=== PATIENT | male | born 1985 | race Caucasian/White ===

== ENCOUNTER 2020-01-11 12:39 | Emergency (ER) | payer OTHER, SELFPAY ==
--- NOTE | ~2020-01-11 | XR_ITS ---
EXAMINATION: XR chest 1V portable EXAM DATE: 01/11/2020 13:36 INDICATION: Cough/SOA TECHNIQUE: Portable AP frontal chest x-ray was obtained. Comparison is made to prior examination from 10/11/2011. FINDINGS: Relatively low lung volume. No confluent consolidation, pneumothorax or pleural effusion lisa spected. Cardiomediastinal silhouette is normal. There are no osseous abnormalities identified. IMPRESSION: Unremarkable XR chest 1V portable exam. Reviewed, dictated and finalized at location [facility]
[2020-01-11 12:57] VITALS: BP 132/100; PULSE 121; RESP 29; TEMP 36.8; O2SAT 97
[2020-01-11 13:22] LABS: Basophils Percent Auto 0.3 % (0.2-1.2); Eosinophils Percent Auto 0.3 % (0-4.4); Hematocrit 43.9 % (42.0-52.0); Immature Granulocyte Absolute 0.01 K/mm3 (0.00-0.031); Immature Granulocyte Percent A 0.3 % (0-0.5); Mean Corpuscular HGB Conc 34.2 g/dl (32-36); Mean Corpuscular Hemoglobin 30.9 pg (26-34); Mean Corpuscular Volume 90.5 fl (80-100); Mean Platelet Volume 8.7 fl (7.4-10.4); Monocytes Absolute Auto 0.2 K/mm3 (0.1-0.6); Monocytes Percent Auto 6.4 % (2.6-8.5); Neutrophils Absolute Auto 1.8 K/mm3 (1.3-6.7); Neutrophils Percent Auto 57.7 % (45.5-73.1); Platelet Count Result 195 k/mm3 (150-375); Red Blood Count 4.85 M/mm3 (4.6-6.20); Red Cell Distribution Width 12.6 % (11.5-14.5); White Blood Count 3.1 K/mm3 (4.5-10.0)
[2020-01-11] MEDS: BENZONATATE 100 MG CAPSULE 200 MG PO (13:25)
[2020-01-11] MEDS: SODIUM CHLORIDE 0.9% IV 1,000 ML 999 ML IV CONT (13:25)
[2020-01-11 13:33] LABS: Alanine Aminotransferase 55 U/L (4-50); Albumin Level 4.6 g/dL (3.5-5.1); Alkaline Phosphatase 49 U/L (38-126); Anion Gap 13 mmol/L (8-16); Aspartate Amino Transferase 54 U/L (17-59); Bilirubin,Total 0.5 mg/dL (0.2-1.3); Blood Urea Nitrogen 13 mg/dL (9-20); Calcium 8.8 mg/dL (8.4-10.2); Carbon Dioxide 25 mmol/L (22-30); Chloride 103 mmol/L (98-107); D Dimer 0.34 ug/mL (<0.48); Estimated CRCL calculation 121 ml/min; Estimated Glomerular Filt Rate > 60; Glucose 130 mg/dL (75-110); Potassium 3.7 mmol/L (3.4-5.0); Sodium 141 mmol/L (137-145)
--- NOTE | 2020-01-11 13:37 | ED.GENADULT ---
HPI - General Adult General Chief complaint: Shortness of Breath/Dyspnea Stated complaint: short of breath Time Seen by Provider: 01/11/20 12:46 History of Present Illness HPI narrative: Patient is a 34-year-old male who presents ER with cough and shortness of breath. Reports 5 days ago he started developing sinus congestion with postnasal drip with productive cough. This is typical for this time of year. 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 Unsure if he could have been exposed to Covid. Reports he has been taking his Mucinex D as well as 24-hour Claritin to help with his symptoms. 3 hours prior to arrival patient started develop shortness of breath where he feels like there is water in his lungs and he cannot get a deep breath. He feels slightly anxious about the symptoms but was not having anxiety prior to his development of shortness of breath. No chest pain or chest pressure. No lower extremity swelling. No history of blood clots. He has been afebrile. Reports he has not been eating well over the last couple days. Related Data Allergies Allergy/AdvReac Type Severity Reaction Status Date / Time No Known Allergies Allergy Verified 01/11/20 13:04 Review of Systems Review of Systems: All systems reviewed & are unremarkable except as noted in HPI and below Constitutional: Constitutional: Denies chills, Denies fever(s) and Denies weakness ENT: Reports nasal congestion and Reports sore throat Cardiovascular: Cardiovascular: Denies chest pain and Denies radiating jaw, neck or arm pain Respiratory: Respiratory: Reports chest congestion, Reports cough, Reports dyspnea and Denies wheezing Gastrointestinal: Gastrointestinal: Denies abdominal pain, Denies nausea and Denies vomiting PMFSH Past Medical History Medical History (Updated 01/11/20 @ 15:05 by Joe Horne MD) Healthy adult male Surgical History Surgical History (Updated 01/11/20 @ 13:40 by Joe Horne MD) No history of previous surgery Social History Social History (Updated 01/11/20 @ 13:40 by Joe Horne MD) Smoking status: Never smoker Additional occupation/education comments: Works as a 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 Exam Narrative: Exam Narrative: GENERAL: Well-appearing, well-nourished, and in no acute distress. HEAD: Normocephalic, atraumatic. ENT: Mucous membranes moist. No pharyngeal erythema or tonsillar exam. CHEST: Very faint crackles at the base with increased respiratory rate. Frequent coughing. HEART: Tachycardic regular. Normal peripheral pulses. ABDOMEN: Soft, nontender, nondistended. EXTREMITIES: Normal range of motion. No edema. NEURO: Alert and oriented x3. PSYCH: Normal mood and affect. Course Course Emergency Course: Respiratory rate normalized, heart rate improving with IV fluid. Occasionally coughing up phlegm. Discharge home with albuterol. Covid swab pending. Vital Signs Vital signs: Vital Signs Temperature 98.2 F 01/11/20 12:57 Pulse Rate 121 H 01/11/20 12:57 Respiratory Rate 29 H 01/11/20 12:57 Blood Pressure 132/100 H 01/11/20 12:57 Pulse Oximetry 97 01/11/20 12:57 Temperature 98.2 F 01/11/20 12:57 Pulse Rate 121 H 01/11/20 12:57 Respiratory Rate 29 H 01/11/20 12:57 Blood Pressure 132/100 H 01/11/20 12:57 Pulse Oximetry 97 01/11/20 12:57 Medical Decision Making Vital Signs Vital Signs: Vital Signs Temperature 98.2 F 01/11/20 12:57 Pulse Rate 121 H 01/11/20 12:57 Respiratory Rate 29 H 01/11/20 12:57 Blood Pressure 132/100 H 01/11/20 12:57 Pulse Oximetry 97 01/11/20 12:57 Temperature 98.2 F 01/11/20 12:57 Pulse Rate 121 H 01/11/20 12:57 Respiratory Rate 29 H 01/11/20 12:57 Blood Pressure 132/100 H 01/11/20 12:57 Pulse Oximetry 97 01/11/20 12:57 Lab Data Result diagrams: 01/11/20 13:16 01/11/20 13:16 Labs: Lab Results 01/11/20 01/11/20 01/11/20 Range/Units
[2020-01-11 13:42] LABS: NT Pro B Type Natriuretic Pept < 11 PG/ML (5-100)
[2020-01-13 22:23] LABS: SARS-CoV-2 RNA PCR Positive
== END 2020-01-11 15:20 | disposition home or self-care (01) ==
PROVIDERS: Emergency Provider Emergency Medicine
DX: U07.1 COVID-19 (principal); J06.9 Acute upper respiratory infection, unspecified; R05 Cough
CPT/HCPCS: 36415; 71045; 80053; 83880; 85025; 85380; 87635; 96360; 99283; A9270; C9803; J7030; U0003

== ENCOUNTER 2020-11-15 08:27 | Emergency (ER) | payer OTHER, SELFPAY ==
--- NOTE | 2020-11-15 08:34 | ED.GENADULT ---
HPI - General Adult General Chief complaint: Upper Respiratory Infection Stated complaint: sore throat Time Seen by Provider: 11/15/20 08:35 Source: patient Mode of arrival: ambulatory Limitations: no limitations History of Present Illness HPI narrative: 35-year-old male patient presents to the [facility] with complaints of sore throat that started today. Patient states he has had Covid back in December 2019 and has been fully vaccinated. Denies being any contact with people that have been positive with Covid that he is aware of. Patient states that he has was having some pain with swallowing today when to come get checked out. Denies any history of strep throat in the past. Related Data Home Medications Medication Instructions Recorded Confirmed No Home Medications 11/15/20 11/15/20 Allergies Allergy/AdvReac Type Severity Reaction Status Date / Time No Known Allergies Allergy Verified 11/15/20 08:30 Review of Systems Review of Systems: CONSTITUTIONAL: Denies fever, chills, or sweats. EYES: Denies visual changes, redness, or discharge. ENT: Denies rhinorrhea, congestion, positive sore throat, otalgia. CARDIOVASCULAR: Denies chest pain, palpitations, or edema. RESPIRATORY: Denies cough or dyspnea. GASTROINTESTINAL: Denies abdominal pain, nausea, vomiting, or diarrhea. GENITOURINARY: Denies dysuria or hematuria. SKIN: Denies rash or itching. MUSCULOSKELETAL: Denies back pain, joint pain, or myalgia. NEUROLOGIC: Denies headache, numbness, or weakness. PSYCHIATRIC: Denies anxiety or depression. 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 Comments At the time of my signature I agree with nursing past medical history, surgical, social, and family history. There is no relevant family history pertinent to the presenting complaint. Exam Narrative: GENERAL: Well-appearing, well-nourished, and in no acute distress. HEAD: Normocephalic, atraumatic. EYES: PERRLA and EOMI. ENT: Nares with erythema and edema noted bilaterally, no rhinorrhea or epistaxis. Mucous membranes moist. Patient has swollen uvula noted to the back of the throat. Bilateral TMs do have a little bit of fluid behind NECK: Supple. No lymphadenopathy CHEST: Clear to auscultation. No respiratory distress. HEART: Regular rate and rhythm. No murmur heard. Normal peripheral pulses. ABDOMEN: Soft, nontender, nondistended, normal active bowel sounds. EXTREMITIES: Normal range of motion. No edema. SKIN: Warm, dry, no rash. NEURO: No focal deficits. Alert and oriented x3. Course Vital Signs Vital signs: Vital Signs Temperature 36.4 C L 11/15/20 08:48 Pulse Rate 88 11/15/20 08:48 Respiratory Rate 18 11/15/20 08:48 Blood Pressure 134/90 11/15/20 08:48 Pulse Oximetry 99 11/15/20 08:48 Temperature 36.4 C L 11/15/20 08:48 Pulse Rate 88 11/15/20 08:48 Respiratory Rate 18 11/15/20 08:48 Blood Pressure 134/90 11/15/20 08:48 Pulse Oximetry 99 11/15/20 08:48 Vital signs reviewed The patient has been informed that they may have pre-hypertension or Hypertension based on a BP reading in the department. I recommend that the patient call the primary care provider listed on their discharge instructions or a physician of their choice this week to arrange follow up for further evaluation of possible pre-hypertension or Hypertension Medical Decision Making Differential Diagnosis Differential Diagnosis: Differential diagnosis: Allergic rhinitis, chronic sinusitis, tonsillitis, acute sinusitis, infectious mononucleosis, seasonal infl
[2020-11-15 08:48] VITALS: BP 134/90; PULSE 88; RESP 18; TEMP 36.4; O2SAT 99
== END 2020-11-15 09:23 | disposition home or self-care (01) ==
PROVIDERS: Emergency Provider Nurse Practitioner Family
DX: R22.0 Localized swelling, mass and lump, head (principal); J02.9 Acute pharyngitis, unspecified
CPT/HCPCS: 87081; 87880; 96372; 99213; G0463; J1100

== ENCOUNTER 2022-10-06 08:15 | Emergency (ER) | payer OTHER, SELFPAY ==
[2022-10-06 08:22] VITALS: BP 125/82; PULSE 85; RESP 16; TEMP 36.3; O2SAT 100
--- NOTE | 2022-10-06 08:25 | ED.ABDPAIN ---
HPI - Abdominal Pain General Chief Complaint: Abdominal Pain Stated Complaint: Left Side Abdominal Pain Time Seen by Provider: 10/06/22 08:36 Source: patient and RN notes reviewed Mode of arrival: ambulatory Limitations: no limitations History of Present Illness HPI narrative: 36 y/o male presented for c/o left lower abdominal pain worsening over the past 3 days. States pain started as mild discomfort Tuesday morning, was not relieved after large BM that day. Pain is constant and sharp, worse with certain movements like bending or lifting the left leg. LBM last night, normal. Last meal yesterday, reports normal appetite. Denies change in diet or increase in seeds nuts etc. Denies associated n/v/d/f/c, hematochezia or melena. Denies testicular pain/swelling or urinary complaints. Took pepto yesterday without relief. Related Data Home Medications Medication Instructions Recorded Confirmed No Home Medications 11/15/20 10/06/22 Allergies Allergy/AdvReac Type Severity Reaction Status Date / Time No Known Allergies Allergy Verified 10/06/22 08:25 Review of Systems Review of Systems: CONSTITUTIONAL: Denies body aches, fever, chills ENT: Denies rhinorrhea, congestion CARDIOVASCULAR: Denies chest pain, palpitations, or edema. RESPIRATORY: Denies cough or dyspnea. GASTROINTESTINAL: Endorses LLQ abdominal pain, . Denies nausea, vomiting, diarrhea, hematochezia, melena GENITOURINARY: Denies dysuria, hematuria, or CVA tenderness. SKIN: Denies rash, itching, or wounds. MUSCULOSKELETAL: Denies back pain, joint pain, or myalgia. NEUROLOGIC: Denies headache, numbness, tingling, or weakness. 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 Comments At time of signature, I have reviewed and agree with nursing past medical, surgical, social and family history unless otherwise noted. Please see nursing chart for further information. There is no relevant family history pertinent to the presenting complaint Exam Narrative: GENERAL: Well-appearing, in no acute distress. EYES: EOMI. Conjunctivae normal. ENT: Mucous membranes pink and moist. CHEST: No respiratory distress. Clear to auscultation. HEART: Regular rate and rhythm. No murmur appreciated. Normal peripheral pulses. ABDOMEN: abd soft, nondistended, normal active bowel sounds. Tender abdomen LLQ with light palpation; No guarding, rebound tenderness, rigidity, or asymmetry. No pulsatile masses. Negative Villarreal?s sign. No periumbilical tenderness, suprapubic tenderness or distension. No scarring or bruising. EXTREMITIES: Normal range of motion. No edema. SKIN: Warm, dry, no rash. Capillary refill normal. Normal skin turgor. NEURO: No focal deficits. Alert and oriented x3. PSYCH: Normal affect. Course Course Emergency Course: Patient is aware of diagnosis, understands and agrees to treatment plan. Anticipatory guidance given. Patient agrees to follow-up as directed and is aware of reasons to seek care at the emergency department. Portions of this record may have been created with voice recognition software Level of Care: Express Care Visit Transfer Transfered to: [place] Transportation: Other (Private vehicle) Transfer rationale: Pt is agreeable to transfer. Requests transfer to [facility] via private vehicle. Risks of transportation reviewed with pt including injury, worsening of condition and . v/u. Driving self. Report called to hospital, spoke with kathy Morales
== END 2022-10-06 08:53 | disposition short-term general hospital (02) ==
PROVIDERS: Emergency Provider Nurse Practitioner Family
DX: R10.32 Left lower quadrant pain (principal)
CPT/HCPCS: 81003; 99212; G0463

== ENCOUNTER 2022-10-06 09:09 | Emergency (ER) | payer OTHER, SELFPAY ==
--- NOTE | ~2022-10-06 | CT_ITS ---
EXAMINATION: CT abdomen pelvis w con DATE: 10/06/2022 10:19 INDICATION: Left lower quadrant abdominal pain. TECHNIQUE: Computed tomography (CT) of the abdomen and pelvis was performed with 100 mL Omnipaque 350 intravenous contrast. Automated exposure control and iterative reconstruction technique were employe d. The dose-length product was 1134.65 mGy-cm. COMPARISON: None. FINDINGS: The visualized portions of the lung bases are clear without pneumonia or pleural effusion. The heart size is normal. No pericardial effusion. There is a small sliding hiatal hernia. There is d iffuse hepatic steatosis. The spleen, gallbladder, pancreas, adrenal glands, and left kidney are norm al. There is focal cortical thinning of right kidney. There is fat stranding around an epiploic appen dage of sigmoid colon, consistent with epiploic appendagitis. There are no dilated loops of bowel. Th e appendix is normal. There are no pathologically enlarged lymph nodes. There is no free intraperiton eal fluid. There is mild thoracic and lumbar spondylosis. IMPRESSION: 1. Epiploic appendagitis of sigmoid colon. Reviewed, dictated and finalized at location A.
[2022-10-06 09:29] VITALS: BP 126/62; PULSE 48; RESP 16; TEMP 36.8; O2SAT 100
--- NOTE | 2022-10-06 09:37 | ED.ABDPAIN ---
HPI - Abdominal Pain General Chief Complaint: Abdominal Pain Stated Complaint: abd pain Time Seen by Provider: 10/06/22 09:15 History of Present Illness HPI narrative: 36-year-old male no medical history presents to the emergency room for evaluation of left lower quadrant pain that has been present for several days. Patient states that pain does not radiate, is worse with ambulating and movement and is better when he splints that. Denies any nausea, vomiting, patient or diarrhea. Denies fevers. Related Data Allergies Allergy/AdvReac Type Severity Reaction Status Date / Time No Known Allergies Allergy Verified 10/06/22 08:25 Review of Systems Review of Systems: CONSTITUTIONAL: Denies fever, chills, or sweats. EYES: Denies visual changes, redness, or discharge. ENT: Denies rhinorrhea, congestion, sore throat, or otalgia. CARDIOVASCULAR: Denies chest pain, palpitations, or edema. RESPIRATORY: Denies cough or dyspnea. GASTROINTESTINAL: Per HPI GENITOURINARY: Denies dysuria or hematuria. SKIN: Denies rash or itching. MUSCULOSKELETAL: Denies back pain, joint pain, or myalgia. NEUROLOGIC: Denies headache, numbness, dizziness, or weakness. PSYCHIATRIC: Denies anxiety or depression. 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 Exam Narrative: GENERAL: Well-appearing, well-nourished, no physical limitations, and in no acute distress. HEAD: Normocephalic, atraumatic. EYES: Conjunctivae normal, PERRLA and EOMI. CHEST: Clear to auscultation. No respiratory distress. No wheezes rales or rhonchi. HEART: Regular rate and rhythm. No murmur heard. Normal peripheral pulses. ABDOMEN: Soft, LLQ tenderness, nondistended, normal active bowel sounds. BACK: No CVA tenderness EXTREMITIES: Normal range of motion. No edema. No clubbing or cyanosis SKIN: Warm, dry, no rash. No noted wounds NEURO: No focal deficits. Alert and oriented x3. MAEW. CN's II-XI intact bilaterally, normal gait PSYCH: Cooperative. Normal mood and affect. Course Vital Signs Vital signs: Vital Signs Temperature 36.8 C 10/06/22 09:29 Pulse Rate 48 L 10/06/22 09:29 Respiratory Rate 16 10/06/22 09:29 Blood Pressure 126/62 10/06/22 09:29 Pulse Oximetry 100 10/06/22 09:29 Temperature 36.8 C 10/06/22 09:29 Pulse Rate 48 L 10/06/22 09:29 Respiratory Rate 16 10/06/22 09:29 Blood Pressure 126/62 10/06/22 09:29 Pulse Oximetry 100 10/06/22 09:29 MDM - Abdominal Pain MDM Narrative Medical decision making narrative: 36-year-old male presented to the emergency room with left lower quadrant pain has progressively gotten worse over the past couple of days. Patient denies nausea vomiting diarrhea or constipation. CT scan shows epiploic appendagitis of the sigmoid colon. No other acute intra-abdominal abnormality. Lab work was unremarkable. Will discharge patient home in stable condition with anti-inflammatories. Lab Data 10/06/22 09:40 10/06/22 10:11 Labs: Lab Results 10/06/22 10/06/22 Range/Units 09:40 10:11 WBC 6.8 (4.5-10.0) K/mm3 RBC 5.21 (4.6-6.20) M/mm3 Hgb 16.1 (14.0-18.0) g/dL Hct 46.6 (42.0-52.0) % MCV 89.4 (80-100) fl MCH 30.9 (26-34) pg MCHC 34.5 (32-36) g/dl RDW 12.4 (11.5-14.5) % Plt Count 271 (150-375) k/mm3 MPV 8.5 (7.4-10.4) fl Immature Gran % (Auto) 0.4 (0-0.5) % Neut % (Auto) 50.5 (45.5-73.1) % Lymph % (Auto) 38.3 (18.3-44.2) % Dixon % (Auto) 9.5 H (2.6-8.5) % Eos % (Auto) 0.9 (0-4.4) % Baso % (Auto)
[2022-10-06] MEDS: SODIUM CHLORIDE 0.9% IV 1,000 ML 999 ML IV CONT (09:43)
[2022-10-06 09:47] LABS: Basophils Percent Auto 0.4 % (0.2-1.2); Eosinophils Absolute Auto 0.1 K/mm3 (0-0.3); Eosinophils Percent Auto 0.9 % (0-4.4); Hematocrit 46.6 % (42.0-52.0); Hemoglobin 16.1 g/dL (14.0-18.0); Immature Granulocyte Absolute 0.03 K/mm3 (0.00-0.031); Immature Granulocyte Percent A 0.4 % (0-0.5); Lymphocytes Absolute Auto 2.59 K/mm3 (0.9-3.2); Lymphocytes Percent Auto 38.3 % (18.3-44.2); Mean Corpuscular HGB Conc 34.5 g/dl (32-36); Mean Corpuscular Hemoglobin 30.9 pg (26-34); Mean Corpuscular Volume 89.4 fl (80-100); Mean Platelet Volume 8.5 fl (7.4-10.4); Monocytes Absolute Auto 0.6 K/mm3 (0.1-0.6); Monocytes Percent Auto 9.5 % (2.6-8.5); Neutrophils Absolute Auto 3.4 K/mm3 (1.3-6.7); Neutrophils Percent Auto 50.5 % (45.5-73.1); Platelet Count Result 271 k/mm3 (150-375); Red Blood Count 5.21 M/mm3 (4.6-6.20); Red Cell Distribution Width 12.4 % (11.5-14.5); White Blood Count 6.8 K/mm3 (4.5-10.0)
[2022-10-06 09:48] LABS: Appearance Urine Clear (Clear); Bilirubin Urine Negative (Negative); Blood Urine Negative (Negative); Color Urine Yellow (Yellow); Glucose Urine UA Negative (Negative); Ketones Urine Negative (Negative); Leukocyte Esterase Ur Negative LEU/UL (Negative); Nitrate Urine Negative (Negative); Protein Urine Negative (Negative); Specific Grav Ur 1.021 (1.001-1.035); Urobilinogen Urine 0.2 mg/dL (<2.0)
[2022-10-06 09:56] LABS: Add Urine Microscopic? NO; Alanine Aminotransferase 60 U/L (6-50); Albumin Level 4.6 g/dL (3.5-5.1); Alkaline Phosphatase 62 U/L (38-126); Anion Gap 6 mmol/L (8-16); Aspartate Amino Transferase 40 U/L (17-59); Bilirubin,Total 0.7 mg/dL (0.2-1.3); Blood Urea Nitrogen 14 mg/dL (9-20); Calcium 9.1 mg/dL (8.4-10.2); Carbon Dioxide 25 mmol/L (22-30); Chloride 104 mmol/L (98-107); Estimated CRCL calculation 130 ml/min; Estimated Glomerular Filt Rate > 60; Glucose 101 mg/dL (65-110); Lipase 79 U/L (23-300); Potassium 4.2 mmol/L (3.4-5.0); Sodium 135 mmol/L (137-145)
[2022-10-06 10:00] VITALS: BP 128/72; PULSE 58; RESP 16; TEMP 36.8; O2SAT 100
[2022-10-06 10:12] LABS: Estimated CRCL calculation 130 ml/min; Estimated Glomerular Filt Rate > 60
[2022-10-06] MEDS: KETOROLAC 30 MG/ML VIAL (*BKC) IV PUSH (10:50)
[2022-10-06 11:00] VITALS: BP 167/88; PULSE 71; RESP 16; TEMP 36.3; O2SAT 98
[2022-10-06 11:13] VITALS: TEMP 36.3
== END 2022-10-06 11:14 | disposition home or self-care (01) ==
PROVIDERS: Emergency Provider Nurse Practitioner Family; PCP Internal Medicine
DX: K63.89 Other specified diseases of intestine (principal)
CPT/HCPCS: 36415; 74177; 80053; 81003; 83690; 85025; 96361; 96374; 99284; J1885; J7030; Q9967